=== PATIENT | male | born 1955 | race African-American/Black ===

== ENCOUNTER 2017-09-12 19:20 | Inpatient (IN) | payer MEDICARE, MEDICAID ==
[~2017-09-12] VITALS: Ht 175.3 cm; Wt 73.9 kg
[2017-09-12 21:30] VITALS: BP 92/57
[2017-09-12] MEDS ORDERED: MOM30 ML ORAL (23:37)
[2017-09-12] MEDS ORDERED: DULCOLAX10 MG RC (23:37)
[2017-09-12] MEDS ORDERED: MULTIVITAMINS1 EAC8 ORAL (23:37)
[2017-09-12] MEDS ORDERED: ACETAMINOPHEN325 M1 ORAL (23:37)
[2017-09-12] MEDS ORDERED: RISPERIDONE2 MG ORAL (23:37)
[2017-09-12] MEDS ORDERED: ASPIRIN81 MG ORAL (23:37)
[2017-09-12] MEDS ORDERED: FLEET ENEMA133 ML RECTAL (23:37)
[2017-09-12] MEDS ORDERED: NIACIN500 M4 PO (23:37)
[2017-09-13] VITALS: BP 104/59
[2017-09-13] MEDS ORDERED: Milk of Magnesia 30ml Ud ORAL PRN (01:30)
[2017-09-13] MEDS ORDERED: Fleet's Enema 133ml RECTAL PRN (01:30)
[2017-09-13] MEDS ORDERED: LORazepam Inj 2mg/ml 1ml IV PRN (01:45)
[2017-09-13 04:00] VITALS: BP 112/67
[2017-09-13 07:54] LABS: ANION GAP 6 mmol/L (5-15); BLOOD UREA NITROGEN 12 mg/dL (7-18); CALCIUM 8.5 MG/DL (8.5-10.1); CARBON DIOXIDE 29 MMOL/L (21-32); CHLORIDE 109 MMOL/L (98-107); CREATININE 0.8 MG/DL (0.55-1.30); POTASSIUM 3.8 MMOL/L (3.5-5.1); SODIUM 144 MMOL/L (136-145)
[2017-09-13 08:00] VITALS: BP 113/65
[2017-09-13] MEDS: Multivitamin w/Minerals tab ORAL SCH (08:26)
[2017-09-13] MEDS: NIACIN 500 MG ORAL SCH (08:26)
[2017-09-13] MEDS: Aspirin Baby 81mg ORAL SCH (08:26)
[2017-09-13 08:30] LABS: EOSINOPHILS % (AUTO) 2.6 % (0.0-3.0); HEMOGLOBIN 12.7 G/DL (14.2-18.0); LYMPHOCYTES % (AUTO) 40.5 % (20.0-45.0); MEAN CORPUSCULAR VOLUME 85 FL (80-99); MONOCYTES % (AUTO) 8.7 % (1.0-10.0); NEUTROPHILS % (AUTO) 47.2 % (45.0-75.0); PLATELET COUNT 156 K/UL (150-450); RED BLOOD COUNT 4.48 M/UL (4.70-6.10); RED CELL DISTRIBUTION WIDTH 12.5 % (11.6-14.8); WHITE BLOOD COUNT 5.9 K/UL (4.8-10.8)
[2017-09-13 11:29] LABS: APPEARANCE,URINE CLEAR; BILIRUBIN, URINE NEGATIVE (NEGATIVE); GLUCOSE, URINE (UA) NEGATIVE (NEGATIVE); KETONES,URINE NEGATIVE (NEGATIVE); LEUKOCYTE ESTERASE ,URINE NEGATIVE (NEGATIVE); NITRITE,URINE NEGATIVE (NEGATIVE); PH,URINE 6.5 (4.5-8.0); PROTEIN,URINE NEGATIVE (NEGATIVE); UROBILINOGEN,URINE NORMAL MG/DL (0.0-1.0)
[2017-09-13 11:38] LABS: COLOR,URINE YELLOW
[2017-09-13 12:00] VITALS: BP 99/57
[2017-09-13] MEDS ORDERED: Haloperidol Decanoate 50mg Inj IM ONE (15:30)
[2017-09-13 16:00] VITALS: BP 100/63
[2017-09-13] MEDS ORDERED: 1/2 NS 1000ml IV ONE (16:28)
[2017-09-13 21:00] VITALS: BP 92/54
--- NOTE | 2017-09-13 22:45 | History and Physical Report ---
DATE OF ADMISSION: 09/12/2017 HISTORY: This is a 62-year-old male, who came to the emergency room for having altered mental status, generalized weakness, more confused, and agitated. He has no fever or chills. PAST MEDICAL HISTORY: Significant for depression, psychosis, and dementia. MEDICATIONS: See the list. ALLERGIES: NKA. PHYSICAL EXAMINATION: GENERAL: This is an elderly white male, who is currently awake and comfortable and lying in bed. VITAL SIGNS: Blood pressure is 92/54, pulse 97, temperature 97, and respirations 20. SKIN: Good skin turgor. HEENT: AT/NC. EOMI. PERRLA. NECK: Supple. No JVD. CHEST: Bilateral crackles. CARDIOVASCULAR: Regular rhythm. No gallop. No murmur. ABDOMEN: Soft. EXTREMITIES: CCE. NEUROLOGICAL: The patient is in no focal deficit. GENITOURINARY: Deferred. LABORATORY DATA: White count 5.9 and hemoglobin 13. Chemistry panel, sodium 144, potassium 3.8, BUN 12, creatinine 0.8, and glucose is 91. ASSESSMENT: 1. Altered mental status. 2. Confusion. 3. Dementia. 4. Dehydration. PLAN: Continue Risperdal, Haldol, lorazepam, and Namenda, and psych consult. discussed with the neurologist. He does not have time today, but see him tomorrow. Lucien Rai M.D. DR: GRETA JOB#: [id number] CC:
[2017-09-14] VITALS: BP 102/58
[2017-09-14 04:00] VITALS: BP 98/56
[2017-09-14 08:00] VITALS: BP 107/69
[2017-09-14] MEDS: Aspirin Baby 81mg ORAL SCH (08:09)
[2017-09-14] MEDS: Multivitamin w/Minerals tab ORAL SCH (08:09)
[2017-09-14] MEDS: NIACIN 500 MG ORAL SCH (08:09)
[2017-09-14] MEDS: LORazepam 1mg tab ORAL PRN (11:22)
[2017-09-14 12:06] VITALS: BP 103/70
--- NOTE | 2017-09-14 14:32 | Consultation ---
History of Present Illness General Date patient seen: Sep 13, 2017 Present Illness HPI 62-year-old male with hx of psychosis, who came to the emergency room for having altered mental status, generalized weakness, more confused, and agitated. the pt was seen on 09/13/17. He was crying and wandering around. the sitter was at bedside. The pt was disorganized confused and agitated Allergies: Coded Allergies: No Known Allergies (Unverified , 09/12/17) Medication History Scheduled Aspirin* (Aspirin*), 81 MG ORAL DAILY, (Reported) Bisacodyl (Dulcolax), 10 MG RC PRN, (Reported) Magnesium Hydroxide (Milk of Magnesia), 30 ML ORAL PRN, (Reported) Multivitamin With Minerals (Multivitamins With Minerals*), 1 TAB ORAL DAILY, ( Reported) Na Phos,M-B/Na Phos,Di-Ba* (Fleet Enema*), 133 ML RECTAL PRN, (Reported) Niacinamide (Niacin), 500 MG PO DAILY, (Reported) Risperidone (Risperidone), 2 MG ORAL BID, (Reported) Scheduled PRN Acetaminophen* (Acetaminophen 325MG Tablet*), 650 MG ORAL Q6HR PRN for Fever/ Headache/Mild Pain, (Reported) Patient History Limited by: medical condition History Provided By: Medical Record, PMD Healthcare decision maker N Resuscitation status Advanced Directive on File Review of Systems Psychiatric: Reports: prior hx, anxiety, emotional problems, hallucinations Physical Exam General Appearance: no apparent distress, alert, confused, agitated Last 24 Hour Vital Signs Date Time Temp Pulse Resp B/P (MAP) Pulse Ox O2 Delivery O2 Flow Rate FiO2 09/14/17 12:06 97.3 76 18 103/70 (81) 96 97.3 09/14/17 08:00 Room Air 09/14/17 08:00 97.3 69 18 107/69 (82) 98 97.3 09/14/17 04:00 98.2 68 20 98/56 (70) 96 98.2 09/14/17 00:00 97.7 64 20 102/58 (73) 97 97.7 09/13/17 21:00 97.0 65 20 92/54 (67) 96 97.0 09/13/17 21:00 Room Air 09/13/17 16:00 98.2 60 20 100/63 (75) 98.2 Intake and Output 09/13/17 09/14/17 19:00 07:00 Intake Total 1275 ml 915 ml Balance 1275 ml 915 ml Intake Oral 600 ml IV Total 675 ml 675 ml Other 240 ml # Voids 4 2 Height (Feet): 5 Height (Inches): 9.00 Weight (Pounds): 163 Medications Current Medications Medications (Trade) Dose Ordered Sig/Dahlia Route PRN Reason Start Time Stop Time Status Last Admin Dose Admin Acetaminophen (Tylenol) 650 mg Q6H PRN ORAL Fever/Headache/Mild Pain 09/13/17 01:30 10/13/17 01:29 Aspirin (ASA) 81 mg DAILY ORAL 09/13/17 09:00 10/13/17 08:59 09/14/17 08:09 Bisacodyl (Dulcolax) 10 mg DAILY PRN RECTAL Constipation 09/13/17 01:30 10/13/17 01:29 Lorazepam (Ativan) 2 mg Q6H PRN ORAL For Anxiety 09/13/17 14:15 09/20/17 14:14 09/14/17 11:22 Magnesium Hydroxide (Mom) 30 ml DAILY PRN ORAL Constipation 09/13/17 01:30 10/13/17 01:29 Multivitamins Therapeutic (Therapeutic Multivitamin) 1 ea DAILY ORAL 09/13/17 09:00 10/13/17 08:59 09/14/17 08:09 Niacin (Niacin ER) 500 mg DAILY ORAL 09/13/17 09:00 10/13/17 08:59 09/14/17 08:09 Risperidone (RisperDAL) 6 mg BEDTIME ORAL 09/13/17 21:00 10/13/17 20:59 09/13/17 20:31 Sodium Chloride 1,000 ml @ 75 mls/hr [id number] IV 09/13/17 01:45 10/13/17 01:44 09/14/17 04:52 Sodium Phosphate (Fleet's Sodium Phosl Enema) 133 ml DAILY PRN RECTAL Constipation 09/13/17 01:30 10/13/17 01:29 Assessment/Plan Status: unchanged Assessment/Plan Schizophrenia Encephalopathy -risperdal 6mg qhs -haldol dec -dc the sitter -haldol and ativan prn Farhadi,Pantea MD Sep 14, 2017 14:32
--- NOTE | 2017-09-14 14:35 | General Progress Note ---
Assessment/Plan Assessment/Plan Schizophrenia Encephalopathy -risperdal 6mg qhs -haldol dec -dc the sitter -haldol and ativan prn Subjective Date patient seen: Sep 14, 2017 Neurologic/Psychiatric: Reports: anxiety, emotional problems Allergies: Coded Allergies: No Known Allergies (Unverified , 09/12/17) Subjective the pt is more manageable Objective Last 24 Hour Vital Signs Date Time Temp Pulse Resp B/P (MAP) Pulse Ox O2 Delivery O2 Flow Rate FiO2 09/14/17 12:06 97.3 76 18 103/70 (81) 96 97.3 09/14/17 08:00 Room Air 09/14/17 08:00 97.3 69 18 107/69 (82) 98 97.3 09/14/17 04:00 98.2 68 20 98/56 (70) 96 98.2 09/14/17 00:00 97.7 64 20 102/58 (73) 97 97.7 09/13/17 21:00 97.0 65 20 92/54 (67) 96 97.0 09/13/17 21:00 Room Air 09/13/17 16:00 98.2 60 20 100/63 (75) 98.2 Intake and Output 09/13/17 09/14/17 19:00 07:00 Intake Total 1275 ml 915 ml Balance 1275 ml 915 ml Intake Oral 600 ml IV Total 675 ml 675 ml Other 240 ml # Voids 4 2 Height (Feet): 5 Height (Inches): 9.00 Weight (Pounds): 163 General Appearance: no apparent distress, alert, confused Yvan Lang MD Sep 14, 2017 14:35
[2017-09-14 16:00] VITALS: BP 129/72
[2017-09-14 20:00] VITALS: BP 100/61
--- NOTE | 2017-09-14 22:45 | Progress Note ---
DATE: 09/14/2017 SUBJECTIVE: This is an elderly male who is confused and wandering, refusing IV lines. No fever. No chills. OBJECTIVE: VITAL SIGNS: Blood pressure 130/70, pulse 74, respirations 18. No fever. CHEST: Bilaterally clear. CARDIOVASCULAR: Regular rhythm. ABDOMEN: Soft. EXTREMITIES: CCE. ASSESSMENT: 1. Altered mental status, improving. 2. Dehydration. 3. Agitation. 4. Parkinson disease. 5. Dementia. PLAN: 1. We will currently discontinue IV fluids and increase p.o. fluid. 2. PT and OT. 3. Continue therapy. 4. Psychiatrist on the case. Lucien Rai M.D. DR: Saira JOB#: [id number] CC:
[2017-09-15] VITALS: BP 119/68
[2017-09-15 04:00] VITALS: BP 108/60
[2017-09-15 08:00] VITALS: BP 108/64
[2017-09-15] MEDS: Aspirin Baby 81mg ORAL SCH (09:57)
[2017-09-15] MEDS: Multivitamin w/Minerals tab ORAL SCH (09:57)
[2017-09-15] MEDS: NIACIN 500 MG ORAL SCH (09:57)
[2017-09-15 12:00] VITALS: BP 135/72
[2017-09-15] MEDS: LORazepam 1mg tab ORAL PRN (13:32)
[2017-09-15 16:00] VITALS: BP 134/85
--- NOTE | 2017-09-15 20:45 | Discharge Summary ---
DATE OF ADMISSION: 09/12/2017 DATE OF DISCHARGE: 09/15/2017 HISTORY: This is an elderly male, came to the emergency room for altered mental status and generalized weakness, , Parkinson disease. The patient is currently alert, awake, feeling better. He came to the hospital. His workup physically being fine and he is going back to the halfway. Follow up as an outpatient. DISCHARGE DIAGNOSES: 1. Parkinson disease. 2. Dementia. 3. Depression. DIET: Two-gram sodium diet. ACTIVITY: As tolerated. Lucien Rai M.D. DR: JOSH JOB#: [id number] CC:
--- NOTE | 2017-09-15 21:56 | General Progress Note ---
Assessment/Plan Status: stable, progressing Assessment/Plan Schizophrenia Encephalopathy -risperdal 6mg qhs -haldol dec -dc the sitter -haldol and ativan prn Subjective Date patient seen: Sep 15, 2017 Neurologic/Psychiatric: Reports: anxiety, depressed, emotional problems Allergies: Coded Allergies: No Known Allergies (Unverified , 09/12/17) Subjective the pt is more manageable Objective Last 24 Hour Vital Signs Date Time Temp Pulse Resp B/P (MAP) Pulse Ox O2 Delivery O2 Flow Rate FiO2 09/15/17 16:00 97.3 104 18 134/85 (101) 97 97.3 09/15/17 12:00 97.9 70 20 135/72 (93) 97 97.9 09/15/17 09:00 Room Air 09/15/17 08:00 98.2 89 20 108/64 (79) 97 98.2 09/15/17 04:00 97.6 68 18 108/60 (76) 96 97.6 09/15/17 00:00 98.1 68 18 119/68 (85) 98 98.1 Intake and Output 09/14/17 09/15/17 19:00 07:00 Intake Total 1600 ml 480 ml Balance 1600 ml 480 ml Intake Oral 1600 ml 480 ml # Voids 2 3 Height (Feet): 5 Height (Inches): 9.00 Weight (Pounds): 163 General Appearance: alert, confused, agitated Yvan Lang MD Sep 15, 2017 21:56
== END 2017-09-15 19:40 | DRG 56 ==
LOC: 4E 21:15
DX: G20 Parkinson's disease (principal); G93.40 Encephalopathy, unspecified; E86.0 Dehydration; F02.80 Dementia in other diseases classified elsewhere, unspecified severity, without behavioral disturbance, psychotic disturbance, mood disturbance, and anxiety; F20.9 Schizophrenia, unspecified; F32.9 Major depressive disorder, single episode, unspecified
CPT/HCPCS: 36415; 80048; 81001; 85025; 87081